=== PATIENT | female | born 1930 | race Caucasian/White ===

== ENCOUNTER → 2016-11-05 | Outpatient (CLI) | payer OTHER ==
[~2016-11-05] MED LIST: ASPIRIN EC81 M1 PO; B COMPLEX-VITA1 EACH; BENAZEPRIL HCL40 MG PO; CALCIUM 500+D1 EAC3 PO; CARDIO; CIPROFLOXACIN500 M1 PO; FISH OIL 1,001000 MG PO; GARLIC OIL1 EACH; GLUMETZA500; I-CAPS AREDS S1 EACH; LEVOTHYROXINE0.05 MG PO; MIRALAX255 GM PO; NORVASC 5 MG TAB5 MG PO; OMEPRAZOLE 20 M20 M1 PO; PHENERGAN 25 MG25 M1 PO; PRAVACHOL40 MG; VITAMIN D400 UNI1; VITAMIN E200 UNI4 PO; VITAMINC500; ZOFRAN4 MG PO; [UNRECOGNIZED DRUG - OTHER]
== END ==
LOC: RAD 04:11
DX: Z12.31 Encounter for screening mammogram for malignant neoplasm of breast (principal)

== ENCOUNTER → 2018-11-14 | Outpatient (CLI) | payer OTHER | LOC: RAD 02:01 | DX: Z12.31 Encounter for screening mammogram for malignant neoplasm of breast (principal) ==